=== PATIENT | female | born 1950 | race Caucasian/White ===

== ENCOUNTER → 2016-03-31 | Outpatient (CLI) | payer OTHER ==
--- NOTE | 2016-03-31 15:26 | RAD ---
DATE: 03/31/2016 EXAM: DIGITAL SCREEN BILAT W/CAD HISTORY: Routine screening COMPARISON: 12/26/2013 This study was interpreted with the benefit of Computerized Aided Detection (CAD). FINDINGS: There are scattered fibroglandular densities in the breasts. No new or enlarging breast densities are seen. Scattered and clustered microcalcifications in the left breast have shown no significant change, suggesting a benign etiology. No suspicious microcalcifications have developed. IMPRESSION: Stable mammograms without evidence of malignancy. BI-RADS CATEGORY: 2 BENIGN FINDING(S) RECOMMENDED FOLLOW-UP: 12M 12 MONTH FOLLOW-UP PQRS compliance statement: Patient information was entered into a reminder system with a target due date for the next mammogram. Mammography is a sensitive method for finding small breast cancers, but it does not detect them all and is not a substitute for careful clinical examination. A negative mammogram does not negate a clinically suspicious finding and should not result in delay in biopsying a clinically suspicious abnormality. "Our facility is accredited by the [employer] Mammography Program."
== END | disposition home or self-care (01) ==
LOC: MAMMO 13:53
PROVIDERS: ATTEND Obstetrics & Gynecology
DX: Z12.31 Encounter for screening mammogram for malignant neoplasm of breast (principal)
CPT/HCPCS: G0202; 77067

== ENCOUNTER → 2016-10-05 | Outpatient (CLI) | payer OTHER ==
--- NOTE | 2016-10-05 15:32 | CARD ---
APPROVED REPORT INDICATION Dyspnea PROCEDURE The patient underwent an exercise Stress Test using the Jordan protocol. Blood pressure, heart rate, a nd EKG were monitored. An Echocardiogram was performed by ordnance engineering technician in four stages in quad fashion. At peak stress four se lected images were obtained and placed side by side with resting images for comparison. STRESS ECHO FINDINGS The resting Echocardiogram showed normal left ventricular contractility with an estimated Ejection Fr action of about 60 %. Normal augmentation of myocardial wall segments using a 16 segment model. Test Type: Exercise Stress Nurse/Tech: Catherine Ocampo R.N. Test Indications: Dyspnea Cardiac History and Allergies: SEE EMR Medications: SEE EMR Medical History: SEE EMR Resting ECG: SR Resting Heart Rate: 58 bpm Resting Blood Pressure: 134/78mmHg Pretest Chest Pain: None Nurse/Tech Notes S1S2, lungs CTA, denied chest pain, dizziness or SOA. Consent: The procedure was explained to the patient in lay terms. Informed consent was witnessed. Sohan eout was entered into [facility]. History and Stress Test performed by Catherine Ocampo R.N. Stress Symptoms Short of air, fatigue. POST EXERCISE Reason for Termination: Patient request Target HR: 132 Max HR: 130 bpm 84% of Maximum Predicted HR: 155 bpm Exercise duration: 5:35 min:sec, 2 Stage Exercise capacity: 7.0METs Max Blood Pressure: 186/88mmHg Blood Pressure response to exercise: Normal blood pressure response during stress.Normal blood pressu re response during stress. Heart Rate response to exercise: Normal Chest Pain: No. Arrhythmia: Yes. PAC's ST Change: No. INTERPRETATION Stress EKG Conclusion: Baseline EKG showed sinus rhythm. No ischemic changes at peak stress. No arr hythmias. RESTING ECG Rhythm: Sinus STRESS ECG Rhythm: Sinus Tachycardia Arrhythmias: None Stress EKG shows no significant changes. Preliminary Notification Critical Value: No <Conclusion> Treadmill exercise stress echocardiogram did not show any evidence of ischemia or infarct. Normal left ventricle systolic function with ejection fraction estimated at 60%. Patient had good activity tolerance. Low risk for cardiac events.
== END | disposition home or self-care (01) ==
LOC: ECHO 14:04
PROVIDERS: ATTEND Internal Medicine Cardiovascular Disease
DX: I49.9 Cardiac arrhythmia, unspecified (principal); R00.0 Tachycardia, unspecified; R06.00 Dyspnea, unspecified
CPT/HCPCS: 93017; 93350

== ENCOUNTER → 2017-04-20 | Outpatient (CLI) | payer OTHER | END | disposition home or self-care (01) | LOC: MAMMO 14:35 | DX: Z12.31 Encounter for screening mammogram for malignant neoplasm of breast (principal) | CPT/HCPCS: 77067 ==

== ENCOUNTER → 2018-04-26 | Outpatient (CLI) | payer OTHER ==
--- NOTE | 2018-04-26 14:01 | KCIC ---
Indication: Estrogen deficiency. TECHNIQUE: DEXA scan COMPARISON: None FINDINGS: The bone mineral density in the left femoral neck measures 1.158 g/sq cm with T score of 1.8. The bone mineral density in the L1-L4 measures 1.632 g/sq cm with T score of 5.3. IMPRESSION: Normal bone mineral density. Please note that degenerative changes in the lumbar spine can falsely elevate bone mineral density. Electronically signed by: Salbador Tom DO (04/26/2018 1:59 PM) [id number]
== END | disposition home or self-care (01) ==
LOC: KCIC DEXA 13:15
PROVIDERS: ATTEND Internal Medicine
DX: E28.39 Other primary ovarian failure (principal)
CPT/HCPCS: 77080